=== PATIENT | male | born 1950 | race African-American/Black ===

== ENCOUNTER 2017-01-14 08:08 | Emergency (ER) | payer MEDICARE, MEDICAID ==
[~2017-01-14] VITALS: Ht 180.3 cm; Wt 81.0 kg
[~2017-01-14 08:08] MED LIST: AMOXICILLIN500 MG PO
[2017-01-14] MEDS ORDERED: PILOCARPINE OD (10:37)
[2017-01-14] MEDS ORDERED: BETIMOL0.5 % OD (10:37)
[2017-01-14] MEDS ORDERED: ACETAZOLAMIDE250 MG PO (10:37)
[2017-01-14 14:05] VITALS: BP 119/74
== END 2017-01-14 14:05 ==
LOC: ED 08:08
DX: H40.211 Acute angle-closure glaucoma, right eye (principal); H53.8 Other visual disturbances

== ENCOUNTER 2018-09-07 08:47 | Emergency (ER) | payer MEDICARE, MEDICAID ==
[~2018-09-07] VITALS: Ht 180.3 cm; Wt 70.0 kg
[~2018-09-07 08:47] MED LIST changes: +ACETAZOLAMIDE250 MG PO; +BETIMOL0.5 % OD; +PILOCARPINE OD
[2018-09-07] MEDS ORDERED: ACULAR LS0.4 % OU (10:13)
[2018-09-07 10:15] VITALS: BP 118/72
== END 2018-09-07 10:22 | disposition home or self-care (01) ==
LOC: ED 08:47
DX: H57.13 Ocular pain, bilateral (principal)

== ENCOUNTER 2018-09-08 11:45 | Emergency (ER) | payer MEDICARE, MEDICAID ==
[~2018-09-08] VITALS: Ht 180.3 cm; Wt 65.0 kg
[~2018-09-08 11:45] MED LIST changes: +ACULAR LS0.4 % OU
[2018-09-08 13:03] VITALS: BP 132/80
== END 2018-09-08 13:02 ==
LOC: ED 11:45
DX: H40.211 Acute angle-closure glaucoma, right eye (principal)

== ENCOUNTER 2018-11-15 09:32 | Observation (INO) | payer MEDICARE, MEDICAID ==
[~2018-11-15] VITALS: Ht 180.3 cm; Wt 70.8 kg
--- NOTE | 2018-11-15 09:36 | NUR ---
PATIENT AMBULATES TO ROOM WITH STEADY GAIT, BEDSIDE TRIAGE COMPLETED.
[2018-11-15 10:46] LABS: HEMATOCRIT 40.7 % (39.0-50.0); HEMOGLOBIN 13.8 g/dl (14.0-18.0); IMMATURE GRANULOCYTES 0.2 % (0.0-5.0); MEAN CELL VOLUME 97.4 fL CALC (80.0-100.0); MEAN CORPUSCULAR HGB CONC 33.9 g/L CALC (32.0-36.0); NEUT# 1.68 thou/uL (1.82-7.42); RED BLOOD COUNT 4.18 mill/uL (4.70-6.10); RED CELL DISTRI WIDTH 12.7 % (11.5-15.5)
[2018-11-15 10:51] LABS: AMYLASE 128 u/l (30-110); CPK 107 u/l (52-200); LIPASE 65 u/l (23-300); MAGNESIUM 1.8 mg/dL (1.6-2.3)
[2018-11-15 10:54] LABS: ALKALINE PHOSPHATASE 79 u/l (38-126); ANION GAP 14 (6-22 (CALC)); BILIRUBIN, TOTAL 1.2 mg/dL (0.0-1.4); BUN 18 mg/dL (8-23); BUN/CREATININE RATIO 16 (12-20 (CALC)); CARBON DIOXIDE 24 mmol/l (22-30); CHLORIDE 107 mmol/l (95-108); CREATININE 1.2 mg/dL (0.7-1.3); GFR 60 ML/MIN (>=60 (CALC)); GFR FOR AFR.AMER. > 60 ML/MIN (>=60 (CALC)); POTASSIUM 4.9 mmol/l (3.5-5.1); SODIUM 141 mmol/l (137-146); TOTAL PROTEIN 8.5 g/dL (6.3-8.2)
--- NOTE | 2018-11-15 10:55 | NUR ---
PT WITH IV ESTABLISHED, BLOOD DRAWN, PCXR COMPLETED, AWAITING RESULTS.
[2018-11-15 10:58] LABS: ALBUMIN 4.5 g/dL (3.2-5.0); ETHYL ALCOHOL < 10 mg/dl (0-30); SGOT/AST 44 u/l (19-48)
--- NOTE | 2018-11-15 11:31 | NUR ---
REPORT RECEIVED FROM PRASANNA IN ED, PT ARRIVED ON UNIT VIA W/C @ 7907 TRANSPORTED BY ED STAFF. ALERT AND ORIENED X 3, SETTLED IN BED, ORIENTED TO ROOM AND CALL ORTEGA. DENIED PAIN BUT STATED HIS APPETITE HAS BEEN POOR FOR PAST COUPLE MONTHS AND HE HAS BEEN LOSING WEIGHT. EDUCATED/INFORMED ON FALL PRECAUTION AND STATED UNDERSTANDING, SPOUSE AT BEDSIDE. CREOLE IS PRIMARY LANGUAGE FOR BOTH AND LANGUAGE LINE WAS USED FOR ACCURATE COMMUNICATION.
--- NOTE | 2018-11-15 12:00 | NUR ---
PATIENT RESTING AWAITNG ROOM ASSIGNMENT. PATIENT DENIES ANY PAIN, SOB OR DISCOMFORT AT THIS TIME
--- NOTE | 2018-11-15 12:22 | NUR ---
REPORT CALLED TO [place]
--- NOTE | 2018-11-15 13:01 | NUR ---
PATIENT TRANSPORTED TO [facility]
[2018-11-15 13:22] VITALS: BP 117/66
[2018-11-15] MEDS ORDERED: TIMOLOL 0.5%5 ML OU (14:37)
[2018-11-15 15:49] VITALS: BP 11/63
--- NOTE | 2018-11-15 18:10 | NUR ---
REA FROM ED REPORTED RHYTHM OF ST UP TO 115 BPR LASTING APPROX 4 MINS, ON ASSESSMENT PT HAD JUST RETURNED FROM BATHROOM AND IN BED WITH RHYTHM BACK TO 52 BPR. PT DENIES DISCOMFORT AT THIS TIME, WILL CONTINUE TO MONITOR.
--- NOTE | 2018-11-15 18:25 | NUR ---
SPOKE TO JACOB IN CT WHO INFORMED ME A MATERIALS TECH WAS NEEDED TO COMMUNICATE WITH PT INFORMING/EDUCATING HIM ON CT PROCEDURES, SAID HE IS UNABLE TO PERFORM TEST UNTIL MATERIALS TECH IS AVAILABLE PT HAS TO SIGN FOR PROCEDURE. HE WAS INFORMED NURSE USED LANGUAGE LINE ON UNIT TO COMMUNICATE BUT STATED LISSETTE WAS TO GET BACK TO HIM ON THIS ISSUE.
--- NOTE | 2018-11-15 19:18 | NUR ---
REPORT RECEIVED FROM DAY NURSE. PT DENIES ANY NEEDS AT THIS TIME. IS AT SIDE. PT ENOURAGED TO CALL NEEDS ARISE. PT ASSISTED W/TAXI NUMBERS STATING SHE NEEDS TO LEAVE FOR A LITTLE WHILE AND WILL BE BACK.
[2018-11-15 20:46] VITALS: BP 116/65
--- NOTE | 2018-11-15 20:52 | NUR ---
PT ASSESSMENT COMPLETED AT THIS TIME. PT WAS ABLE TO COMMUNICATE W/ME IN PANAMANIAN TO EXTENT NEEDED AT THIS TIME. NO DISTRESS NOTED AT THIS TIME. DENIES N/V/PAIN. WILL CONTINUE TO MONITOR AND PT ENCOURAGED TO CALL NEEDS ARISE. CALL LIGHT NEXT TO PT HAND AND ITS USE WAS REVIEWED/VERBALIZED UNDERSTANDING, PT ASKED FOR LIGHT TO BE TURNED OUT AND DOOR CLOSED AT THIS TIME.
--- NOTE | 2018-11-15 23:45 | NUR ---
RECEIVED CALL FROM PHYSICIAN ASKING FOR CT RESULTS/SPRING COILING MACHINE SETTER CONTACTED XRAY REGARDING CT SCANS THAT HAVE NOT BEEN COMPLETED THIS DAY. 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 I ASKED IF SPRING COILING MACHINE SETTER COULD ACCOMPANY PT AND BRING PHONE TRANSLATION LINE W/PT TO PROVIDE INTERPRETATION AND BLOCKER AND SEWER STATED THAT THIS WAS NOT ACCEPTABLE, THAT IT HAS TO BE A LIVE OCCUPATIONAL HEALTH AND SAFETY ADVISER SO THAT SYMPTOMS AND INSTRUCTIONS CAN BE DISCUSSED AND GIVEN THROUGHOUT EXAM ADMINISTRATION. WILL NOTIFY PHYSICIAN OF THIS.
[2018-11-16 00:29] VITALS: BP 108/65
--- NOTE | 2018-11-16 02:00 | NUR ---
ORDERS DISCUSSED W/CASINO GAMES DEALER WHO DISCUSSED SITUATION W/XRAY REGARDING CT ORDERS FOR PT. WILL NOTIFY PHYSICIAN,DAY NURSE AND CASINO GAMES DEALER IN AM REGARDING TESTS NOT BEING COMPLETED.
--- NOTE | 2018-11-16 03:40 | NUR ---
PT SLEEPING AT THIS TIME. NO S/O DISTRESS NOTED. CALL LIGHT AT SIDE.
[2018-11-16 05:04] VITALS: BP 105/61
[2018-11-16 06:10] LABS: MAGNESIUM 1.8 mg/dL (1.6-2.3)
--- NOTE | 2018-11-16 07:00 | NUR ---
SHIFT CHANGE REPORT, PT AWAKE ALERT AND ORIENTED, NO C/O DISCOMFORT AT THIS TIME, BEING TRANSPORTED OFF UNIT VIA W/C WITH STUDENTS TO PROCEDURE, SPOUSE AT BEDSIDE.
--- NOTE | 2018-11-16 07:45 | NUR ---
PHYSICIAN NOTIFIED THAT PT IS NOW BEING TAKEN DOWN FOR CT SCANS ORDERED. NO NEW ORDERS RECEIVED.
--- NOTE | 2018-11-16 08:06 | NUR ---
JUST RETURNED FROM PROCEDURE AND RE-SETTLED IN ROOM, HAVING MEAL AT THIS TIME.
[2018-11-16 11:58] VITALS: BP 109/65
--- NOTE | 2018-11-16 12:47 | NUR ---
RESTING IN BED AFTER MEAL, NO CONCERNS TO BE ADDRESSED, CALL ORTEGA IN REACH, SPOUSE AT BEDSIDE.
--- NOTE | 2018-11-16 13:13 | NUR ---
RESTING N BED, DR HOPKINS ROUNDED, DISCUSSED PLAN OF CARE WITH PT AND SPOUSE, BOTH STATED UNDERSTANDING.
[2018-11-16 15:30] VITALS: BP 99/55
--- NOTE | 2018-11-16 17:36 | NUR ---
AMBULATED HALLWAYS JUST NOW FOR RUBBER GRINDER TO MONITOR HR ON AMBULATION AND PROVIDE STRIP REQUESTED BY DR MASSEY, SPOUSE AT SIDE AND TAKES ACTIVE PART IN CARE.
--- NOTE | 2018-11-16 19:25 | NUR ---
REPORT RECEIVED FROM DAY NURSE. PT IS STANDING NEXT TO THE BED W/ ASSISTING HIM TO PUT HIS PANTS BACK ON. WE ASSISTED W/NEW GOWN AND NEW SOCKS. NEED FOR URINE SAMPLE DISCUSSED W/PT AND AND NEW URINAL PROVIDED W/INSTRUCTIONS TO USE THE NEW URINAL ONLY AND CALL WHEN SAMPLE IS AVAILABLE/VERBALIZED UNDERSTANDING. PT ASSISTED GETTING INTO BED FOR COMFORT, IS AT BEDSIDE, WILL FOLLOW-UP WITH ROLL-AWAY BED AND BEDDING FOR .
[2018-11-16 21:00] VITALS: BP 117/63
--- NOTE | 2018-11-16 21:12 | NUR ---
PT ASSESSMENT COMPLETED AT THIS TIME AND V/S OBTAINED. ASSISTED PT W/FRESH SOCKS AND REPOSITIONING FOR COMFORT IN BED. IS AT BEDSIDE STAYING, ROLL-AWAY PROVIDED W/BEDDING FOR HER COMFORT. WATER REPLENISHED. DENIES ANY OTHER NEEDS AT THIS TIME. CALL LIGHT AT SIDE OF PT AND ENCOURAGED THEM TO CALL. UA COLLECTED AT THIS TIME W/FRESH CATCH.
[2018-11-16 21:23] LABS: URINE BILIRUBIN - DIPSTICK NEGATIVE (NEGATIVE); URINE BLOOD DIPSTICK NEGATIVE (NEGATIVE); URINE COLOR YELLOW; URINE GLUCOSE - DIPSTICK NEGATIVE (NEGATIVE); URINE KETONE NEGATIVE (NEGATIVE); URINE LEUK ESTERASE NEGATIVE (NEGATIVE); URINE NITRITE - DIPSTICK NEGATIVE (Negative); URINE PH 6.5 (4.5-8.0); URINE PROTEIN - DIPSTICK NEGATIVE (NEG-TRACE); URINE SPECIFIC GRAVITY <=1.005
[2018-11-17 00:12] VITALS: BP 110/58
--- NOTE | 2018-11-17 00:15 | NUR ---
AIDE IN OBTAINING V/S, NO S/O DISTRESS. ASLEEP AT BEDSIDE.
--- NOTE | 2018-11-17 03:10 | NUR ---
PT WAS SLEEPING, AWOKE TO MY ENTERING ROOM. IS ASLEEP AT BEDSIDE, ALSO AWOKE. DENIED ANY NEEDS AT THIS TIME. NO S/O DISTRESS NOTED. CALL LIGHT AT SIDE.
[2018-11-17 04:14] VITALS: BP 115/62
[2018-11-17 07:18] VITALS: BP 112/64
--- NOTE | 2018-11-17 08:00 | NUR ---
ASSESSMENT DONE. PT IS A&O X3. PT DENIES PAIN AT THIS TIME. IVF INFSUING WELL. RESPS EVEN AND UNLABORED. PT DENIES NEEDS AT THIS TIME. IN ROOM. CALL LIGHT IN REACH.
[2018-11-17 11:00] VITALS: BP 109/62
--- NOTE | 2018-11-17 12:00 | NUR ---
PT IS SITTING IN THE SIDE OF THE BED EATING HIS LUNCH. TELE IN PLACE. PT DENIES PAIN OR NEEDS. IN ROOM. CALL LIGHT IN REACH.
[2018-11-17] MEDS ORDERED: OMEPRAZOLE20 MG PO (14:24)
--- NOTE | 2018-11-17 15:21 | NUR ---
Discharge instructions given. Patient verbalizes understanding of same. Discharged in stable condition via Ambulatory to Home with spouse. All belongings sent with pt.
== END 2018-11-17 15:21 | disposition home or self-care (01) ==
LOC: ED 09:32 → ED-I 11:46 → ED 12:00 → MS2 12:01
PROVIDERS: ADMIT Internal Medicine; ATTEND Internal Medicine
DX: R00.1 Bradycardia, unspecified (principal); R53.83 Other fatigue; R63.4 Abnormal weight loss; M54.5 Low back pain; R63.0 Anorexia; H40.9 Unspecified glaucoma
CPT/HCPCS: Q9967

== ENCOUNTER 2020-03-08 12:29 | Emergency (ER) | payer MEDICARE, MEDICAID ==
[~2020-03-08] VITALS: Ht 180.3 cm; Wt 65.0 kg
[~2020-03-08 12:29] MED LIST changes: +OMEPRAZOLE20 MG PO; +TIMOLOL 0.5%5 ML OU
[2020-03-08] MEDS ORDERED: BACITRACIN TOP (13:01)
[2020-03-08 13:20] VITALS: BP 128/76
== END 2020-03-08 13:20 | disposition home or self-care (01) ==
LOC: ED 12:29
PROC: 2W23X4Z Dressing of Abdominal Wall using Bandage (ICD-10-PCS; principal; 2020-03-08)
DX: T21.22XA Burn of second degree of abdominal wall, initial encounter (principal); X19.XXXA Contact with other heat and hot substances, initial encounter; Y93.89 Activity, other specified; Y92.009 Unspecified place in unspecified non-institutional (private) residence as the place of occurrence of the external cause

== ENCOUNTER 2021-02-27 22:32 | Emergency (ER) | payer MEDICARE, MEDICAID ==
[~2021-02-27] VITALS: Ht 180.3 cm; Wt 72.8 kg
[~2021-02-27 22:32] MED LIST changes: +BACITRACIN TOP
[2021-02-28 00:45] LABS: HEMATOCRIT 42.5 % (39.0-50.0); HEMOGLOBIN 13.9 g/dl (14.0-18.0); IMMATURE GRANULOCYTES 0.5 % (0.0-5.0); MEAN CORPUSCULAR HGB CONC 32.7 g/dL CAL (32.0-36.0); NEUT# 1.93 thou/uL (1.82-7.42); RED BLOOD COUNT 4.21 mill/uL (4.70-6.10); RED CELL DISTRI WIDTH 11.9 % (11.5-15.5)
[2021-02-28 01:07] LABS: ALBUMIN 3.7 g/dL (3.2-5.0); ALKALINE PHOSPHATASE 78 u/l (38-126); ANION GAP 12 (6-22 (CALC)); BILIRUBIN, TOTAL 1.2 mg/dL (0.0-1.4); BUN 14 mg/dL (8-23); BUN/CREATININE RATIO 11 (12-20 (CALC)); CARBON DIOXIDE 26 mmol/l (22-30); CHLORIDE 105 mmol/l (95-108); CREATININE 1.3 mg/dL (0.7-1.3); GFR 55 ML/MIN (>=60 (CALC)); GFR FOR AFR.AMER. > 60 ML/MIN (>=60 (CALC)); POTASSIUM 4.6 mmol/l (3.5-5.1); SGOT/AST 66 u/l (19-48); SODIUM 138 mmol/l (137-146); TOTAL PROTEIN 7.7 g/dL (6.3-8.2)
[2021-02-28 01:19] LABS: MYOGLOBIN 40 ng/mL (0 - 121)
[2021-02-28] MEDS ORDERED: EQ OMEPRAZOLE20 MG PO (01:41)
[2021-02-28 01:51] VITALS: BP 126/78
== END 2021-02-28 02:03 | disposition home or self-care (01) ==
LOC: ED 22:32
PROVIDERS: Emergency Medicine
DX: K29.70 Gastritis, unspecified, without bleeding (principal); F41.9 Anxiety disorder, unspecified; H40.9 Unspecified glaucoma